=== PATIENT | male | born 1990 | race Caucasian/White ===

== ENCOUNTER 2018-12-15 01:02 | Emergency (ER) | payer BC, SELFPAY ==
[2018-12-15 01:04] VITALS: BP 149/85; PULSE 99; RESP 16; TEMP 37; O2SAT 99; BMI 26.8
--- NOTE | 2018-12-15 01:11 | ED.VIS.GEN ---
History of Present Illness Chief Complaint: Other, Pain/Inj Informant: Patient Onset: Yesterday Narrative: Softball to the left chest 9:30 PM yesterday probably 4 hours ago. Was the picture on the ball hit him. Pain localized to region. Denies any dyspnea. No other injuries. No anticoagulation medicines. Reports had blood clot from previous surgery, no current anticoagulation medicines. Prior similar symptoms: No Past Medical History Smoking Status: Current every day smoker Review of Systems General: Denies: Chills, Fever, Sweats Eyes: Denies: Visual changes - bilaterally, Diplopia ENT: Denies: Rhinorrhea, Sore throat Cardiovascular: Denies: Chest pain, Palpitations Respiratory: Denies: Dyspnea, Cough, Dyspnea on exertion Gastrointestinal: Denies: Abdominal pain, Nausea, Vomiting, Diarrhea, Melena, Hematochezia Genitourinary: Denies: Dysuria, Hematuria, Frequency Musculoskeletal: Denies: Back pain, Extremity Pain Skin: Reports: Wounds. Denies: Rash Neurological: Denies: Headache, Weakness, Numbness Physical Exam Vital Signs/Narrative: Vital Signs Temp Pulse Resp BP Pulse Ox 12/15/18 01:04 98.6 F 99 16 149/85 H 99 Inital Vital Signs reviewed: Yes General: Well nourished, Well developed, No Acute Distress Head: Normocephalic, Atraumatic Eyes: Perrl, EOMI ENT: Moist mucous membranes, No rhinorrhea Neck: Supple, Nontender Cardiovascular: Regular rate, Regular rhythm, No murmurs Respiratory: No distress, CTA bilaterally, - - Chest wall: Left pectoralis upper medial nodes small contusion or circumferential erythema from injury. There is no crepitus of the chest wall. No rib tenderness. Symmetric breath sounds. Abdomen: Soft, Nontender, Nondistended, Normal bowel sounds Back: Nontender, Normal Inspection Extremities: Nontender, No edema Skin: Normal color, No rash Neurological: Alert, Oriented x3, Cranial nerves II-XII grossly intact, Normal Strength, Normal Sensation Psychological: Normal affect, Normal Mood Diagnostic/Tx/Re-eval - Medical Decision Making Patient vitals stable, symmetric breath sounds, no crepitus. There is no sternal tenderness. Discussed contusion at this time with patient. Started on Motrin and ice. Discussed monitoring and possibility of increasing ecchymosis due to recent injury. Discussed obtaining x-ray concerns, declined to monitor at this time. Follow-up as an outpatient as needed. All questions were answered. ED Disposition - Plan for ED Patient: Disposition: Home or Assisted Living Diagnosis: Chest wall contusion Instructions: Chest Wall Contusion Referrals: Jerrod Weinberg MD [STAFF PHYSICIAN] - 5-7 Days
[2018-12-15 01:14] VITALS: BP 138/69; PULSE 90; RESP 16; O2SAT 99
[2018-12-15] MEDS: Ibuprofen 600 MG Tablet PO (01:23)
[2018-12-15 01:57] VITALS: RESP 16
== END 2018-12-15 01:57 | disposition home or self-care (01) ==
LOC: ED 01:25
PROVIDERS: Emergency Provider Emergency Medicine
DX: S20.219A Contusion of unspecified front wall of thorax, initial encounter (principal); F17.200 Nicotine dependence, unspecified, uncomplicated; Z86.718 Personal history of other venous thrombosis and embolism; W21.03XA Struck by baseball, initial encounter; Y93.64 Activity, baseball; Y92.320 Baseball field as the place of occurrence of the external cause; Y99.8 Other external cause status
CPT/HCPCS: 99282

== ENCOUNTER 2019-01-23 14:38 | Observation (INO) | payer BC, SELFPAY ==
[2019-01-23] VITALS (9 sets, daily range): BP systolic 128–149; BP diastolic 70–88; PULSE 66–84; RESP 12–18; TEMP 36.3–36.8; O2SAT 99–100; BMI 26.6; BMI 25.8
--- NOTE | 2019-01-23 15:04 | EKG12_ITS ---
Test Reason : ABD PAIN Blood Pressure : / mmHG Vent. Rate : 071 BPM Atrial Rate : 071 BPM P-R Int : 152 ms QRS Dur : 088 ms QT Int : 398 ms P-R-T Axes : 085 077 028 degrees QTc Int : 432 ms Normal sinus rhythm Moderate voltage criteria for LVH, may be normal variant Cannot rule out Inferior infarct , age undetermined Abnormal ECG Confirmed by SHANIA MOODY ([id number]), art editor JUNE BLACK ([id number]) on 01/29/2019 3:33:54 PM Referred By: Joanie Williamson Confirmed By:SHANIA MOODY
--- NOTE | 2019-01-23 15:04 | RAD_ITS ---
We are attempting to reach an attending provider to discuss findings. An addendum with communication details will be sent when the communication is complete. STUDY: X-RAY CHEST REASON FOR EXAM: Male, 28 years old. Right upper quadrant, chest pain since last Tuesday TECHNIQUE: Single AP portable view of the chest. COMPARISON: None. FINDINGS: There is a pneumothorax which can be seen 3.8 cm below the first rib on the right. It extends down and can be seen in the lateral aspect of the lung. Normal size heart. Normal mediastinum and sejal. Normal visualized pulmonary arteries. Normal visualized aortic arch and descending thoracic aorta. Normal visualized thoracic spine. Normal visualized ribs, clavicles, and shoulders. There is no demonstrated abnormality of the visualized soft tissue structures of the upper abdomen. RAD/Chest 1 View (Portable) IMPRESSION: Moderate volume right pneumothorax. Electronically Signed: Katrin Fernandez MD at 15:30 EDT Tel , Service support ,
[2019-01-23 15:17] LABS: Absolute Lymphocyte Count 2.08 X10^3/uL (0.83-4.51); Absolute Neutrophil Count 3.3 X10^3/uL (2.0-7.7); Basophil# 0.05 X10^3/uL; Basophil% 0.8 % (0-1); Eosinophil# 0.14 X10^3/uL; Eosinophils% 2.2 % (0-5); Hematocrit 40.8 % (40-54); Hemoglobin 13.8 g/dL (13.0-16.5); Lymphocyte # 2.08 X10^3/ul (4.0); Lymphocyte % 33.4 % (19-41); Mean Corp Hgb Conc 33.8 g/dL (32-36); Mean Corpuscular Hgb 30.2 pg (27.0-32.0); Mean Corpuscular Volume 89.3 fL (80-94); Mean Platelet Vol. 10.4 fl (6.2-12.0); Monocyte# 0.67 X10^3/uL; Monocyte% 10.8 % (0-10); NRBC Flagged by Analyzer 0 % (0-5); Neutrophil # 3.27 X10^3/uL (2.7-7.7); Neutrophil % 52.5 % (47-70); Platelet Count 198 K/mm3 (150-450); RBC Distribution Width CV 11.9 % (11.6-14.6); RBC Distribution Width SD 38.4 fl (35.1-43.9); Red Blood Count 4.57 M/mm3 (4.6-6.2); White Blood Count 6.2 K/mm3 (4.4-11.0)
--- NOTE | 2019-01-23 15:19 | ED.DCSUM_ITS ---
- ER Visit Summary Date of Service: 01/23/19 Chief Complaint: Pain History of Present Illness: The patient is a 28 M with right midthoracic pain. Pain started 3 days ago when he woke up. The pain is in his right upper quadrant and right lower lung region and it radiates to the back. Worse with standing and deep breathing. Associated with shortness of breath which is worse with exertion. He also has increased indigestion and decreased oral intake. Chills but no fevers. No other GI or symptoms. History of DVT. Former smoker. Physical Examination: Afebrile and vital signs unremarkable. Patient alert and oriented. No acute distress. Skin appears normal. Heart regular. Lungs clear. Abdomen soft and nontender. Back is nontender. Exam otherwise unremarkable. Test Results: EKG showed sinus rhythm at a rate of [address] and T changes, possible LVH. Awaiting lab work and chest x-ray. Emergency Department Course and Treatment: I did consider cardiac, respiratory, vascular, GI, , infectious causes. Work-up as above. Patient declined pain medicine. Radiology called. He had a moderate right-sided pneumothorax. Based on his history, this is a spontaneous pneumothorax. There is no sign of tension or other issues. The remainder of his work-up was unremarkable. We consented the patient for a pigtail catheter with Heimlich valve. First attempt caused a catheter and it was removed. I tried a second time, and the catheter would not advance. Dr. Lamb attempted the third time more laterally, and the procedure was successful. Chest x-ray showed good placement and reduct ion of the pneumothorax. Patient was discussed with Dr. Light. He recommended admission and observation overnight. We will remove the catheter tomorrow if all goes well. Hospitalist was contacted. Treatment Plan: As above Disposition: Admission Impression: 1. Spontaneous right pneumothorax This note was generated with [employer] software. It may contain incorrect words, spelling, and punctuation that were not noted in review of the chart prior to signing ED Disposition - Plan for ED Patient: Referrals: Care Physician,No Primary [Primary Care Provider] -
[2019-01-23 15:45] LABS: D-Dimer Quantitative (DVT/PE) < 0.27 FEU/ug/m (0.27-0.49)
[2019-01-23 15:49] LABS: ALB/GLOB Ratio 1.2 RATIO (0.9-2.4); AST(SGOT) 14 U/L (15-37); Alanine Aminotransfer ALT/SGPT 20 U/L (16-61); Albumin, Serum 4.1 g/dL (3.2-5.0); Alkaline Phosphatase 51 U/L (45-117); Anion Gap 5 (5-15); BUN 19 mg/dL (7-18); Calcium,Total 9.1 mg/dL (8.5-10.1); Chloride 102 mmol/L (98-107); Creatinine, Serum 1.27 mg/dL (0.70-1.30); EST Glomerular Filtration Rate 70 mL/min (>60); Est Glom Filt Rate - Afr Amer 85 mL/min (>60); Estimated Creatinine Clearance 96.12 ml/min; Globulin 3.3 g/dL (2.2-4.2); Glucose 104 mg/dL (74-106); Lipase 85 U/L (73-393); Protein, Total 7.4 g/dL (6.4-8.2); Sodium Level 138 mmol/L (136-145)
--- NOTE | 2019-01-23 16:19 | RAD_ITS ---
STUDY: X-RAY CHEST REASON FOR EXAM: Male, 28 years old. Chest tube placement TECHNIQUE: Single AP portable view of the chest. COMPARISON: January 23, 2019 chest x-ray FINDINGS: There is a small-caliber right side catheter. There is still a visualized pneumothorax. Normal size heart. Normal mediastinum and sejal. Normal visualized pulmonary arteries. Normal visualized aortic arch and descending thoracic aorta. Normal visualized thoracic spine. Normal visualized ribs, clavicles, and shoulders. There is no demonstrated abnormality of the visualized soft tissue structures of the upper abdomen. RAD/Chest 1 View (Portable) IMPRESSION: Small caliber right side pigtail catheter in the periphery of the mid to upper right chest. Persistent slightly smaller pneumothorax. Electronically Signed: Katrin Fernandez MD at 16:54 EDT Tel , Service support ,
--- NOTE | 2019-01-23 17:54 | HP.PCM_ITS ---
Problem List (1) Spontaneous pneumothorax Status: Acute (2) Nicotine abuse Status: Chronic (3) Hx of deep venous thrombosis Status: Chronic History of Present Illness Date of Admission: 01/23/19 Chief Complaint: SOB The patient is a 28 year old M with pmhx of nicotine abuse, provoked DVT after ACL surgery, who presents to the ER with c/o SOB. This started 3 days ago. He works nights and woke up at about 5 pm, feeling SOB. He was mildly SOB at rest, worse with exertion. He also has associated right sided chest pain at the level of the nipple down to the RUQ. He felt some gurgling in his chest as well. He has no trauma to the right side of his chest - he did get hit with a softball in the left side of his chest 6 weeks ago. He also is a smoker, smoking for the past ten years. He has recently cut down to only a few total cigarettes this past week. He does not smoke anything else. He is exposed to smoke at home - mother smokes. He has not been coughing. No recent illness or infection, so fevers/chills. In the ER CXR shows right sided pneumothorax. ER is attempting to place heimlich valve. [] Past Medical History Past Medical History (Chronic Problems): Chronic Problems Nicotine abuse (Chronic) Hx of deep venous thrombosis (Chronic) Allergies No Known Allergies Allergy (Verified 01/23/19 14:42) Home Medications: Ambulatory Orders Medication Instructions Recorded NK 01/23/19 Surgical History: - - ACL repair Psychiatric History: No pertinent psych hx Lives: Alone Smoking Status: Current some day smoker Tobacco Use: Cigarettes Alcohol: Rare Drugs: None - *Family History Maternal History Items: - - smoker Paternal History Items: No pertinent history Review of Systems Constitutional: Denies: Chills, Fever, Weight Change HEENT: Denies: Head Aches, Sinus Congestion, Sinus Drainage Cardiovascular: Denies: Chest Pain, Palpitations Respiratory: Reports: Shortness of Breath, Shortness of breath at rest, Shortness of breath upon exertion. Denies: Cough, Sputum production Gastrointestinal: Denies: Abdominal Pain, Nausea, Vomiting Genitourinary: Denies: Dysuria Musculoskeletal: Denies: Joint Pain, Joint Tenderness Skin: Denies: Lesions, Rash, Skin Changes, Wounds Neurological: Denies: Numbness, Tingling, Focal weakness Psychiatric: Denies: Anxiety, Depression, Homicidal Ideations, Suicidal Enmanuel ations Hematologic/ Lymphatic: Denies: Easy Bruising, Easy Bleeding VTE Information - Inpt Only VTE Present on Admission: No VTE Mechan Device Prophylaxis: None VTE Pharm Prophylaxis ordered?: Yes Patient Problems: Active and Suspected Problems Spontaneous pneumothorax (Acute) - Physical Exam General: Alert, Oriented x3, Cooperative HEENT: Atraumatic, PERRLA, EOMI, Normocephalic Neck: Supple, No JVD, Negative Carotid Bruits Lungs: Clear to auscultation, Normal air movement Cardiovascular: Regular rate, No murmurs Abdomen: Bowel Sounds Present, Soft, Non Tender Extremities: No edema, Capillary Refill Less than 3 Seconds Skin: No rashes, No breakdown Musculoskeletal: No Tenderness to Palpation of Joints or Extremities Neurological: Cranial nerves II-XII grossly intact Psych/Mental Status: Normal Affect, Appropriate, Alert and oriented to time, place, person, mood and affect Vital Signs Temp Pulse Resp BP Pulse Ox 97.4 F L 82 14 131/70 H 100 01/23/19 14:39 01/23/19 17:52 01/23/19 17:52 01/23/19 17:52 01/23/19 17:52 Oxygen Delivery Method Room Air Weight: 201 lb 15.095 oz Body Mass Index (BMI) 26.6 Laboratory Tests Past 24 Hrs 01/23/19 01/23/19 01/23/19 15:12 15:12 15:12 WBC 6.2 RBC 4.57 L Hgb 13.8 Hct 40.8 MCV 89.3 MCH 30.2 MCHC 33.8 RDW Std Deviation 38.4 RDW Coeff of Vesna 11.9 Plt Count 198 MPV 10.4 Immature Gran % (Auto) 0.300 Neut % (Auto) 52.5 Lymph % (Auto) 33.4 [place] % (Auto) 10.8 H Eos % (Auto) 2.2 Baso % (Auto) 0.8 Absolute Neuts (auto) 3.3 Absolute Lymphs (auto) 2.08 Nucleated RBC % 0 D-Dimer Quant (PE/DVT) < 0.27 L Sodium 138 Potassium 4.0 Chloride 102 Carbon Dioxide 31.0 Anion Gap 5 BUN 19 H Creatinine 1.27 Estim Creat Clear Calc 96.12 Est GFR (MDRD) Af Amer 85 Est GFR (MDRD) Non-Af 70 BUN/Creatinine Ratio 15.0 Glucose 104 Calcium 9.1 Total Bilirubin 0.50 AST 14 L ALT 20 Alkaline Phosphatase 51 Troponin I < 0.015 Total Protein 7.4 Albumin 4.1 Globulin 3.3 Albumin/Globulin Ratio 1.2 Lipase 85 Assessment/Plan All Active Problems Spontaneous pneumothorax (Acute) 1. Spontaneous pneumothorax - ER to place ball valve. Continue IS, aerosols prn, CXR in AM. EKG is negative, troponin is negative. Monitor on tele overnight. 2. Hx DVT, provoked after ACL surgery. D dimer negative. 3. Nicotine abuse - recently cut back a few per week - I discussed the need for complete cessation DVT ppx: early ambulation This patient was seen by Jason Alvarenga PA-C under the supervision of Dr. Williamson.
--- NOTE | 2019-01-23 18:15 | RAD_ITS ---
STUDY: X-RAY CHEST REASON FOR EXAM: Male, 28 years old. Right-sided chest tube placement TECHNIQUE: Single frontal view of the chest. COMPARISON: January 23, 2019 4:27 PM FINDINGS: Heimlich catheter terminates in the right upper lung field. It is no longer kinked. Small right apical pneumothorax appears slightly smaller at 5%. The lungs are clear and expanded. There is no demonstrated pleural abnormality. Normal size heart. Normal mediastinum and sejal. Normal visualized pulmonary arteries. Normal visualized aortic arch and descending thoracic aorta. Normal visualized thoracic spine. Normal visualized ribs, clavicles, and shoulders. There is no demonstrated abnormality of the visualized soft tissue structures of the upper abdomen. RAD/Chest 1 View (Portable) IMPRESSION: Decrease in small right pneumothorax. Heimlich tube is no longer kinked. Electronically Signed: Gilbert Scott MD at 18:35 EDT , Service support ,
--- NOTE | 2019-01-23 18:15 | ED.VISSUMM ---
- ER Visit Summary Date of Service: 01/23/19 Chief Complaint: Atraumatic right chest pain History of Present Illness: The patient is a 28 M who was seen by Dr. Jones. Patient has spontaneous right pneumothorax noted on chest x-ray. Physical Examination: Chest atraumatic normocephalic. Breath sounds are noted bilaterally diminished on the right at the apices. Heart is regular without murmur, gallop or rub Test Results: X-ray reveals approximate 10 to 15% pneumothorax on the right Emergency Department Course and Treatment: Patient was informed that he needs a Heimlich valve placed. He did sign consent. First 2 attempts were unsuccessful. First attempt was unsuccessful because the catheter kinked on itself and was not functional. Second attempt was unsuccessful as well. Patient was prepped draped sterile manner. A different site was used. The pleural cavity was entered easily and catheter advanced. Will obtain chest x-ray to confirm placement. Chest x-ray confirms proper placement and expansion. Chest x-ray was interpreted by ma at 1820. Single portable view. Treatment Plan: admission to hospitalist with consult to pulmonary Disposition: Admission to the hospital Impression: Spontaneous pneumothorax right This note was generated with [employer] dictation software. It may contain incorrect words, spelling, and punctuation that were not noted in review of the chart prior to signing ED Disposition - Plan for ED Patient: Referrals: Care Physician,No Primary [Primary Care Provider] -
[2019-01-23] MEDS: Morphine 2 MG/ML Syringe IV ×2 (19:10→23:35)
[2019-01-23] MEDS: HYDROcodone Bitartrate/Apap 5/325 Tablet PO (21:25)
[2019-01-23] MEDS: 0.9% NaCl Peripheral Flush Adult/Peds IV (23:35)
[2019-01-24] VITALS (7 sets, daily range): BP systolic 100–120; BP diastolic 46–53; PULSE 57–76; RESP 14–16; TEMP 36.6–36.9; O2SAT 99–100
[2019-01-24] MEDS: Morphine 2 MG/ML Syringe IV (04:03)
[2019-01-24] MEDS: 0.9% NaCl Peripheral Flush Adult/Peds IV (04:03)
[2019-01-24] MEDS: HYDROcodone Bitartrate/Apap 5/325 Tablet PO (06:24)
--- NOTE | 2019-01-24 06:42 | CON.PCM_ITS ---
Reason for Consult Date of Consultation: 01/24/19 Reason for Consultation: Primary spontaneous pneumothorax History of Present Illness: The patient is a 28-year-old male, with a history as outlined below, who presented to the emergency department on January 23 with complaints of right- sided thoracic pain. The patient reports that upon awakening Tuesday, he developed right-sided chest pain, which persisted over the next 3 days and was associated with shortness of breath. The patient does have a remote smoking history. He has no history of prior pneumothorax. 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 He denies any significant strenuous physical activity recently. The patient was struck by a line drive during a softball game in his left chest approximately 6 weeks ago. He denies any other form of traumatic injury. He denies any recent severe coughing paroxysms. He has no history of venous thromboembolic disease. On presentation to the emergency department, the patient was noted to be afebrile and hemodynamically stable. He was maintaining appropriate oxygen saturations on room air. Laboratory evaluation revealed no evidence of a leukocytosis. Chemistry profile was unrevealing. D-dimer was negative. Troponin was negative. A plain film chest x-ray was subsequently obtained and revealed a moderate sized right-sided pneumothorax. A small bore chest tube was subsequently placed with near complete resolution of the patient's pneumothorax. A Heimlich valve was put in place and the patient was subsequently admitted to the medical surgical floor for overnight observation and management. Past Medical History Past Medical History (Chronic Problems): Chronic Problems Nicotine abuse (Chronic) Hx of deep venous thrombosis (Chronic) Allergies No Known Allergies Allergy (Verified 01/23/19 14:42) Home Medications: Ambulatory Orders Medication Instructions Recorded Acetaminophen [Tylenol Tablet] 650 mg PO Q6H PRN PRN tab 01/24/19 Oxycodone [Oxyir] 5 mg PO Q6H PRN PRN 3 Days #12 tab 01/24/19 Surgical History: - - ACL repair Psychiatric History: No pertinent psych hx Lives: Alone Smoking Status: Current some day smoker Tobacco Use: Cigarettes Alcohol: Rare Drugs: None - *Family History Maternal History Items: - - smoker Paternal History Items: No pertinent history Review of Systems Constitutional: Denies: Chills, Fever, Weight Change HEENT: Denies: Head Aches, Sinus Congestion, Sinus Drainage Cardiovascular: Reports: Chest Pain Respiratory: Reports: Shortness of Breath Gastrointestinal: Denies: Abdominal Pain, Nausea, Vomiting Genitourinary: Denies: Dysuria Musculoskeletal: Denies: Joint Pain, Joint Tenderness Skin: Denies: Rash, Wounds Neurological: Denies: Numbness, Tingling, Focal weakness Psychiatric: Denies: Anxiety, Depression, Homicidal Ideations, Suicidal Ideations Hematologic/ Lymphatic: Denies: Easy Bruising, Easy Bleeding Patient Problems: Active and Suspected Problems Spontaneous pneumothorax (Acute) Objective: The patient's most recent lab work, culture data and imaging studies have all been personally reviewed. - Physical Exam General: Alert, Oriented x3, Cooperative, No apparent distress HEENT: Atraumatic, PERRLA, Normocephalic Oral: No Gingival or Mucosal Lesions/ Ulcerations Neck: Supple, No Nodes, Trachea Midline Lungs: Normal air movement, No rhonchi, No wheeze, No rales, - - Right-sided small bore chest tube in place with Heimlich valve. Cardiovascular: Regular rate, Regular Rhythm, Normal S1, Normal S2, No murmurs Abdomen: Bowel Sounds Present, Soft, Non Tender Extremities: No clubbing, No cyanosis, No edema Skin: No rashes, No breakdown Musculoskeletal: No Tenderness to Palpation of Joints or Extremities, No Muscle Wasting Lymphatic: No Cervical, Supraclavicular, or Inguinal Adenopathy Neurological: Cranial nerves II-XII grossly intact, Neuro grossly intact Psych/Mental Status: Alert and oriented to time, place, person, mood and affect Vital Signs Temp Pulse Resp BP Pulse Ox 98.1 F 69 16 120/53 L 99 01/24/19 02:52 01/24/19 02:52 01/24/19 03:00 01/24/19 02:52 01/24/19 03:00 Oxygen Flow Rate (L/min) 3 Oxygen Delivery Method Nasal Cannula Weight: 196 lb 1.6 oz Body Mass Index (BMI) 25.8 Intake and Output for Last 24 Hours 01/22/19 01/23/19 01/24/19 23:59 23:59 23:59 Intake Total 900 / 900 Output Total 550 / 550 Balance 350 / 350 Laboratory Tests Past 24 Hrs 01/23/19 01/23/19 01/23/19 15:12 15:12 15:12 WBC 6.2 RBC 4.57 L Hgb 13.8 Hct 40.8 MCV 89.3 MCH 30.2 MCHC 33.8 RDW Std Deviation 38.4 RDW Coeff of Vesna 11.9 Plt Count 198 MPV 10.4 Immature Gran % (Auto) 0.300 Neut % (Auto) 52.5 Lymph % (Auto) 33.4 [place] % (Auto) 10.8 H Eos % (Auto) 2.2 Baso % (Auto) 0.8 Absolute Neuts (auto) 3.3 Absolute Lymphs (auto) 2.08 Nucleated RBC % 0 D-Dimer Quant (PE/DVT) < 0.27 L Sodium 138 Potassium 4.0 Chloride 102 Carbon Dioxide 31.0 Anion Gap 5 BUN 19 H Creatinine 1.27 Estim Creat Clear Calc 96.12 Est GFR (MDRD) Af Amer 85 Est GFR (MDRD) Non-Af 70 BUN/Creatinine Ratio 15.0 Glucose 104 Calcium 9.1 Total Bilirubin 0.50 AST 14 L ALT 20 Alkaline Phosphatase 51 Troponin I < 0.015 Total Protein 7.4 Albumin 4.1 Globulin 3.3 Albumin/Globulin Ratio 1.2 Lipase 85 Clinical Impression(s) from Imaging Studies Chest X-Ray 01/23/19 15:04 IMPRESSION: Moderate volume right pneumothorax. Electronically Signed: Katrin Fernandez MD at 15:30 EDT Tel , Service support , ADDENDUM: 01/23/19 1541 IMPRESSION: Moderate volume right pneumothorax. N.B. : The above information has been verbally conveyed by Katrin Fernandez MD to Yonathan Jones MD, MD, on 01/23/2019 15:34:40 (ET). Electronically Signed: Katrin Fernandez MD at 15:30 EDT Tel , Service support , Chest X-Ray 01/23/19 16:19 IMPRESSION: Small caliber right side pigtail catheter in the periphery of the mid to upper right chest. Persistent slightly smaller pneumothorax. Electronically Signed: Katrin Fernandez MD at 16:54 EDT Tel , Service support , Chest X-Ray 01/23/19 18:15 IMPRESSION: Decrease in small right pneumothorax. Heimlich tube is no longer kinked. Electronically Signed: Gilbert Scott MD at 18:35 EDT , Service support , Assessment/Plan All Active Problems Spontaneous pneumothorax (Acute) RECOMMENDATIONS: 1. We will check chest x-ray this morning and if no evidence of pneumothorax, will remove chest tube. 2. If chest tube is able to be removed, recommend follow-up chest x-ray 2 hours post removal to ensure no evidence of pneumothorax recurrence. 3. The patient can be discharged home from my perspective once x-ray ensures that the patient has not experienced recurrence of his pneumothorax. IMPRESSIONS: 1. Primary spontaneous pneumothorax No precipitating etiology readily identifiable. The patient underwent small bore tube thoracotomy with resolution of the pneumothorax. We will plan to obtain repeat chest x-ray this morning, and if there is no evidence of pneumothorax, chest tube will be removed. I would recommend that a repeat chest x-ray then be completed 2 hours post chest tube removal to ensure that the patient does not experience a recurrence of the pneumothorax. If there is no such finding, he can be discharged home. The patient was counseled regarding the need to seek medical attention if he begins to experience symptoms similar to those which brought him to the hospital. This note was generated with [email or web address] dictation software. It may contain incorrect words, spelling, and punctuation that were not noted in checking the note before signing. Code Visit Inpatient E&M: 69577 Init Hosp L3
--- NOTE | 2019-01-24 06:46 | RAD_ITS ---
EXAM DESCRIPTION: PORTABLE AP CHEST CLINICAL HISTORY: 28 years Male, COMPARISON: Previous portable chest obtained on 01/23/2019 FINDINGS: The thorax is intact. The heart and mediastinum appear to be within normal limits. The lungs appear to be well areated without evidence of pneumonic consolidation or pleural effusion. RAD/Chest 1 View (Portable) IMPRESSION: Normal portable chest. Electronically Signed: Sebas Mcdermott, at 8:22 EDT Tel , Service support ,
--- NOTE | 2019-01-24 10:18 | NURSING ---
Dr. Light reported to this RN that he pulled the chest tube at this time. CXR will be done at 1230 and if ok he may dc home.
--- NOTE | 2019-01-24 11:44 | DCINST_ITS ---
- Discharge Diagnoses Current Active Problems: Current Active and Chronic Problems Spontaneous pneumothorax (Acute) Nicotine abuse (Chronic) Hx of deep venous thrombosis (Chronic) You will use the following diet at home:: No restrictions Your food should be the consistency of: Regular Your liquids should be the consistency of: Regular/Thin Discharge Activity: Return to Normal Activity Allergies/Adverse Reactions: Allergies No Known Allergies Allergy (Verified 01/23/19 14:42) Medications to take at Discharge Acetaminophen [Tylenol Tablet] 650 mg PO Q6H PRN PRN tablet 01/24/19 Oxycodone [Oxyir] 5 mg PO Q6H PRN PRN 3 Days #12 tab 01/24/19 The following prescriptions were given: Oxycodone [Oxyir] 5 mg PO Q6H PRN PRN 3 Days #12 tab PRN Reason: Pain Score 6-10/10 Prescription Printed Primary Care Physician: Care Physician,No Primary [Primary Care Provider] - Please follow up with your Primary Care Physician in: 1 week Test Results: Test results from this visit will be discussed in further detail at your follow- up appointment, if applicable. Proposed Discharge Date: 01/24/19
--- NOTE | 2019-01-24 12:24 | RAD_ITS ---
EXAM DESCRIPTION: PORTABLE AP CHEST CLINICAL HISTORY: 28 years Male, right chest tube removal we check for pneumothorax COMPARISON: Previous AP portable chest obtained on 01/24/2019 and 7:09 AM FINDINGS: The right chest tube has been removed. The rest of the thorax is intact. The heart and mediastinum appear to be within normal limits. The lungs appear to be well areated without evidence of pneumonic consolidation or pleural effusion. RAD/Chest 1 View (Portable) IMPRESSION: Normal portable chest. Electronically Signed: Sebas Mcdermott, at 12:53 EDT Tel , Service support ,
--- NOTE | 2019-01-24 13:21 | DS.PCM_ITS ---
Discharge Date and Diagnosis - Problem List Patient Problems: Active and Suspected Problems Spontaneous pneumothorax (Acute) Date of Admission: 01/23/19 Date of Discharge: 01/24/19 - Primary Discharge Diagnosis Active and Suspected Problems Spontaneous pneumothorax (Acute) Nicotine abuse - Secondary Discharge Diagnosis Chronic Problems Nicotine abuse (Chronic) Hx of deep venous thrombosis (Chronic) Hospital Course and Treatment Imaging Results: RAD/Chest 1 View (Portable) IMPRESSION: Moderate volume right pneumothorax. RAD/Chest 1 View (Portable) IMPRESSION: Small caliber right side pigtail catheter in the periphery of the mid to upper right chest. Persistent slightly smaller pneumothorax. RAD/Chest 1 View (Portable) IMPRESSION: Decrease in small right pneumothorax. Heimlich tube is no longer kinked. RAD/Chest 1 View (Portable) IMPRESSION: Normal portable chest. RAD/Chest 1 View (Portable) IMPRESSION: Normal portable chest. Consults: Brown - pulmonology Operations: None Procedures: - - heimlich valve Summary of Care Provided: Hospital Course: The patient is a 28 year old M with pmhx of provoked DVT following ACL surgery, and nicotine abuse who presented to the ER with c/o SOB worse with exertion and right sided chest pain. In the ER he was found to have a right upper pneumothorax. This was felt to be spontaneous. D dimer was negative. He denied hx of any drug use or vaping. He was a ten year smoker, down to a few cigarettes per week. A heimlich valve was placed in the ER. He was admitted to the med surg floor overnight for monitoring. Pulmonology evaluated the patient the next day. Repeat CXR showed improvement in the pneumo. Pulm removed the heimlich valve and he remained stable symptomatically and on CXR. He was discharged home in stable condition and will need follow up with his PCP in 1 week. This patient was seen by Jason Alvarenga PA-C under the supervision of Dr. Borden [] Patient Problems: Active and Suspected Problems Spontaneous pneumothorax (Acute) - Physical Exam General: Alert, Oriented x3, Cooperative HEENT: Atraumatic, PERRLA, EOMI, Normocephalic Neck: Supple, No JVD, Negative Carotid Bruits Lungs: Clear to auscultation, Normal air movement Cardiovascular: Regular rate, No murmurs Abdomen: Bowel Sounds Present, Soft, Non Tender Extremities: No edema, Capillary Refill Less than 3 Seconds Skin: No rashes, No breakdown Musculoskeletal: No Tenderness to Palpation of Joints or Extremities Neurological: Cranial nerves II-XII grossly intact Psych/Mental Status: Normal Affect, Appropriate, Alert and oriented to time, place, person, mood and affect Vital Signs Temp Pulse Resp BP Pulse Ox 97.8 F 63 16 115/46 L 100 01/24/19 09:00 01/24/19 11:16 01/24/19 09:00 01/24/19 09:00 01/24/19 09:00 Oxygen Flow Rate (L/min) 3 Oxygen Delivery Method Room Air Weight: 196 lb 1.6 oz Body Mass Index (BMI) 25.8 Intake and Output for Last 24 Hours 01/22/19 01/23/19 01/24/19 23:59 23:59 23:59 Intake Total 1200 / 1200 Output Total 550 / 550 Balance 650 / 650 Laboratory Tests Past 24 Hrs 01/23/19 01/23/19 01/23/19 15:12 15:12 15:12 WBC 6.2 RBC 4.57 L Hgb 13.8 Hct 40.8 MCV 89.3 MCH 30.2 MCHC 33.8 RDW Std Deviation 38.4 RDW Coeff of Vesna 11.9 Plt Count 198 MPV 10.4 Immature Gran % (Auto) 0.300 Neut % (Auto) 52.5 Lymph % (Auto) 33.4 [place] % (Auto) 10.8 H Eos % (Auto) 2.2 Baso % (Auto) 0.8 Absolute Neuts (auto) 3.3 Absolute Lymphs (auto) 2.08 Nucleated RBC % 0 D-Dimer Quant (PE/DVT) < 0.27 L Sodium 138 Potassium 4.0 Chloride 102 Carbon Dioxide 31.0 Anion Gap 5 BUN 19 H Creatinine 1.27 Estim Creat Clear Calc 96.12 Est GFR (MDRD) Af Amer 85 Est GFR (MDRD) Non-Af 70 BUN/Creatinine Ratio 15.0 Glucose 104 Calcium 9.1 Total Bilirubin 0.50 AST 14 L ALT 20 Alkaline Phosphatase 51 Troponin I < 0.015 Total Protein 7.4 Albumin 4.1 Globulin 3.3 Albumin/Globulin Ratio 1.2 Lipase 85 Discharge Diet: No Restrictions Discharge Activity: Return to Normal Activity Home Medications: Medications to take at Discharge Acetaminophen [Tylenol Tablet] 650 mg PO Q6H PRN PRN tab 01/24/19 Oxycodone [Oxyir] 5 mg PO Q6H PRN PRN 3 Days #12 tab 01/24/19 Following Prescrptions Were Given to Patient: Oxycodone [Oxyir] 5 mg PO Q6H PRN PRN 3 Days #12 tab PRN Reason: Pain Score 6-1010 Transmission Status: Received by [facility]/pharmacy #[id number] Primary Care Physician: Care Physician,No Primary [Primary Care Provider] - Please follow up with your Primary Care Physician in: 1 week Disposition: Home Minutes spent on discharge:: 35 Patient Condition:: Stable Medical Necessity - Tobacco Use Smoking Status: Current some day smoker Tobacco Use: Cigarettes Meaningful Use Info Meaningful Use Diagnoses (Choose all that apply): None applicable
== END 2019-01-24 15:45 | disposition home or self-care (01) ==
LOC: ED 15:09 → MS3 19:24
PROVIDERS: Admitting Provider Family Medicine; Emergency Provider Emergency Medicine; Referring Provider Family Medicine; Visit Provider Internal Medicine
DX: J93.83 Other pneumothorax (principal); F17.210 Nicotine dependence, cigarettes, uncomplicated; Z86.718 Personal history of other venous thrombosis and embolism
CPT/HCPCS: 32551; 71045; 80053; 83690; 84484; 85025; 85379; 93005; 96374; 96376; 99218; 99285; A4216; G0378

== ENCOUNTER → 2022-01-22 | Outpatient (CLI) | payer BC, SELFPAY ==
--- NOTE | 2022-01-22 13:45 | MRI_ITS ---
STUDY: MR CHEST WITHOUT CONTRAST REASON FOR EXAM: Male, 31 years old. LEFT pectoralis tear/injury -- LEFT pectoralis TECHNIQUE: Standardized fat and water weighted pulse sequences were obtained in all 3 orthogonal planes. COMPARISON: No prior comparison multiplanar imaging of the chest. FINDINGS: Pectoralis tendon insertion onto the proximal humerus is intact. No abnormal fluid at the tendon insertion. There is abnormal fluid signal at the musculotendinous junction, roughly 7 cm from the tendon insertion onto the humerus consistent with myotendinous junction tear. There is no appreciable tendon retraction. Small amount of fluid seen extending into the pectoralis muscle over the chest. The visualized lungs are unremarkable. There is no demonstrated pleural abnormality. Normal heart and pericardium. No axillary lymphadenopathy. Normal mediastinum. Normal hilar regions. Normal unenhanced pulmonary arteries. Normal aorta arch and descending thoracic aorta. Normal osseous structures. 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 Intact tendon insertion onto the proximal humerus. Electronically Signed: Troy Santos DO at 18:18 EDT ,
== END | disposition home or self-care (01) ==
LOC: MRI 13:32
PROVIDERS: Visit Provider Physician Assistant
DX: S29.012A Strain of muscle and tendon of back wall of thorax, initial encounter (principal)
CPT/HCPCS: 71550

== ENCOUNTER 2023-05-04 06:09 | Emergency (ER) | payer BC, SELFPAY ==
[2023-05-04 06:14] VITALS: BP 153/89; PULSE 107; RESP 18; TEMP 36.6; O2SAT 95; BMI 28.3
[2023-05-04 06:18] VITALS: BP 153/89; PULSE 98; RESP 18; TEMP 36.6; O2SAT 95
--- NOTE | 2023-05-04 06:19 | RAD_ITS ---
We are attempting to reach an attending provider to discuss findings. An addendum with communication details will be sent when the communication is complete. EXAM: XR CHEST, 2 VIEWS CLINICAL INDICATION: dyspnea dyspnea TECHNIQUE: Frontal and lateral views of the chest. COMPARISON: Chest x-ray 01/24/2019. FINDINGS: LUNGS AND PLEURAL SPACES: There is a large right pneumothorax with complete collapse the right lung. There is no demonstrated mediastinal shift at this time to indicate tension pneumothorax. No effusion. HEART: Unremarkable. Cardiac silhouette not enlarged. MEDIASTINUM: Central airways and mediastinal contour are unremarkable. BONES/JOINTS: Unremarkable. No acute fracture. SOFT TISSUES: Unremarkable. RAD/Chest PA and Lateral IMPRESSION: Large right pneumothorax with complete collapse of the right lung. Electronically Signed: Han Conner MD at 7:51 EST Reading Location ID and State: [facility] / [place] , Service support ,
[2023-05-04 07:12] VITALS: PULSE 87; RESP 16; O2SAT 98
[2023-05-04 07:18] LABS: Absolute Lymphocyte Count 1.12 X10^3/uL (0.83-4.51); Absolute Neutrophil Count 12.4 X10^3/uL (2.0-7.7); Basophil# 0.06 X10^3/uL; Basophil% 0.4 % (0-1); Eosinophil# 0.07 X10^3/uL; Eosinophils% 0.5 % (0-5); Hematocrit 45.7 % (40-54); Hemoglobin 15.1 g/dL (13.0-16.5); Lymphocyte # 1.12 X10^3/ul (0.83-4.51); Lymphocyte % 7.5 % (19-41); Mean Corpuscular Hgb 29.5 pg (27.0-32.0); Mean Corpuscular Volume 89.4 fL (80-94); Mean Platelet Vol. 10.4 fl (6.2-12.0); Monocyte# 1.09 X10^3/uL; Monocyte% 7.3 % (0-10); NRBC Flagged by Analyzer 0 % (0-5); Neutrophil # 12.44 X10^3/uL (2.7-7.7); Neutrophil % 83.9 % (47-70); Platelet Count 273 K/mm3 (150-450); RBC Distribution Width CV 13.3 % (11.6-14.6); RBC Distribution Width SD 43.7 fl (35.1-43.9); Red Blood Count 5.11 M/mm3 (4.6-6.2); White Blood Count 14.8 K/mm3 (4.4-11.0)
[2023-05-04] MEDS: Morphine 4 MG/ML Syringe IV (07:36)
[2023-05-04 07:37] LABS: Anion Gap 4 (5-15); BUN 14 mg/dL (7-18); BUN/Creat Ratio 12.1 RATIO (10-20); Calcium,Total 9.2 mg/dL (8.5-10.1); Chloride 108 mmol/L (98-107); Creatinine, Serum 1.16 mg/dL (0.70-1.30); EST Glomerular Filtration Rate 76 mL/min (>60); Est Glom Filt Rate - Afr Amer 92 mL/min (>60); Glucose 101 mg/dL (74-106); Potassium 4.4 mmol/L (3.5-5.1); Sodium Level 139 mmol/L (136-145)
[2023-05-04] MEDS: Ondansetron 4 MG/2 ML Vial IV (07:37)
--- NOTE | 2023-05-04 07:52 | EX.ED.DYSGE1 ---
HPI History of Present Illness Chief Complaint: Shortness of Breath Informant: patient Narrative Narrative: Patient is a 33-year-old male with past medical history of spontaneous pneumothorax in 2019. He also had a right lower extremity DVT following a surgery. He states he was worked up for a possible clotting disorder which was negative and he is not on A blood thinner medication. He states yesterday he had a few coughing episodes and then felt almost indigestion within his chest more so on the right side. He states as time progressed he noticed increasing pain and shortness of breath sensation. He states this feels very similar nature to his previous pneumothorax and had concern for this and therefore comes in for evaluation. He denies any recent surgery or travel he also states that there is no family history of cardiac disease at a young age PFSH PFSH Home Medications acetaminophen 325 mg tablet 650 mg (2 x 325 mg) PO Q6H PRN PRN Non-cardiac pain (mod-severe) 01/24/19 [Rx Last Taken Unknown] Allergy/AdvReac Type Severity Reaction Status Date / Time No Known Allergies Allergy Verified 05/04/23 06:13 Social History Smoking Status: Current some day smoker tobacco type: cigarettes ROS ROS ED Constitutional Constitutional ED: Denies chills or fever(s) ENT ENT ED: Denies sore throat Cardiovascular Cardiovascular: Reports chest pain Respiratory/Chest Respiratory/Chest: Reports dyspnea; Denies cough Gastrointestinal Gastrointestinal: Reports nausea; Denies abdominal pain, diarrhea or vomiting Genitourinary Genitourinary ED: Denies dysuria Musculoskeletal Musculoskeletal: Denies myalgias Integumentary Denies rash Neurologic Neurologic: Denies headache(s) Hematologic/Lymphatic Hematologic/Lymphatic: Denies easy bleeding or easy bruising EXAM Physical Exam Const Vital Signs: 05/04/23 06:14 05/04/23 06:18 05/04/23 06:18 Temperature 97.8 F 97.8 F Temperature Source Temporal Temporal Pulse Rate 107 H 98 Respiratory Rate 18 18 Respiratory Effort Normal Respiratory Depth Normal Respiratory Pattern Normal Blood Pressure 153/89 H 153/89 H Blood Pressure Mean 110 110 Pulse Ox 95 95 Oxygen Delivery Method Room Air Room Air Room Air Oxygen Flow Rate (L/min) 05/04/23 07:12 05/04/23 08:16 Temperature Temperature Source Pulse Rate 87 95 Respiratory Rate 16 23 H Respiratory Effort Respiratory Depth Respiratory Pattern Blood Pressure 131/89 H Blood Pressure Mean 103 Pulse Ox 98 98 Oxygen Delivery Method Room Air Nasal Cannula Oxygen Flow Rate (L/min) 4 Positive well nourished and well developed General Appearance ED: well developed; Negative for pallor HEENT Reports moist mucous membranes HEENT Narrative: No tongue or lip swelling no oral lesions no airway edema or compromise Eyes PERRL and EOMs intact bilaterally General Eye ED: Negative for scleral icterus Neck supple and no JVD Neck Narrative: No tracheal deviation or crepitance palpated Chest Wall palpation of chest normal Chest Narrative: No bony deformity or crepitance noted Resp normal respiratory effort Resp Narrative: Breath sounds are severely diminished in the right upper and lower lobe but overall clear to auscultation and patient does not have nasal flaring retractions tachypnea or accessory muscle use Cardio regular rhythm Rate: tachycardic and other Other Details: Heart is tachycardic rate with regular rhythm no murmurs rubs or gallops Radial and carotid pulses are equal and symmetric GI normal to inspection, nondistended, normoactive bowel sounds, non-tender, non-distended and no masses Auscultation: normoactive bowel sounds Palpation: soft Extremity normal to inspection Extremity Narrative: No asymmetric edema no pitting edema negative Homans' sign bilaterally Neuro oriented x3, CN's II-XII intact bilaterally and no sensory deficits noted Sensorium / Orientation: alert Motor Exam: strength 5/5 throughout Psych mental status grossly normal Skin no rashes or lesions noted General Skin Exam: Negative for jaundice or pallor MDM MDM MDM Narrative Medical decision making narrative: Patient presented to the ER hypertensive and slightly tachycardic but otherwise with stable vitals satting in the mid to high 90s on room air. He reported past medical history of spontaneous pneumothorax and mild increasing right-sided chest discomfort with shortness of breath sensation. Differential diagnosis is for recurrent spontaneous pneumothorax versus pneumonia but as he also has history of DVT there is concern this could be secondary to pulmonary embolus. We discussed obtaining basic blood work with a D-dimer as well as a chest x-ray but patient has low concern for blood clot or cardiac event and has more concerned that this is repeat pneumothorax. Therefore we elected to only start with a 2 view chest x-ray. Chest x-ray did reveal a large/complete right-sided pneumothorax. Patient was placed on nasal cannula oxygen for nitrogen washout. General surgery was contacted to help place a right-sided chest tube. As this is the patient's second spontaneous pneumothorax they do recommend transfer to a facility that can potentially perform a VATS procedure. The chest tube was placed by general surgeon Dr. Walton . The case was discussed with cardiothoracic surgeon Dr. Elliott at [facility]. She feels as this is recurrent in nature that she can evaluate the patient and discuss potential surgical options. Therefore patient will be transfer ER to ER at this time where she can evaluate the patient and go over further testing. The case was discussed with the ER physician Dr. Ramirez who accepts the patient for transfer Lab Data Attestation: I reviewed the patient's lab results. Labs: Laboratory Results - last 24 hr 05/04/23 07:15 WBC 14.8 H RBC 5.11 Hgb 15.1 Hct 45.7 MCV 89.4 MCH 29.5 MCHC 33.0 RDW Std Deviation 43.7 RDW Coeff of Vesna 13.3 Plt Count 273 MPV 10.4 Immature Gran % (Auto) 0.400 Neut % (Auto) 83.9 H Lymph % (Auto) 7.5 L [place] % (Auto) 7.3 Eos % (Auto) 0.5 Baso % (Auto) 0.4 Absolute Neuts (auto) 12.4 H Absolute Lymphs (auto) 1.12 Nucleated RBC % 0 Sodium 139 Potassium 4.4 Chloride 108 H Carbon Dioxide 27.0 Anion Gap 4 L BUN 14 Creatinine 1.16 Estim Creat Clear Calc 109.20 Est GFR (MDRD) Af Amer 92 Est GFR (MDRD) Non-Af 76 BUN/Creatinine Ratio 12.1 Glucose 101 Calcium 9.2 Radiography Diagnostic Testing: Clinical Impression(s) from Imaging Studies Chest X-Ray 05/04/23 06:19 IMPRESSION: Large right pneumothorax with complete collapse of the right lung. Electronically Signed: Han Conner MD at 7:51 EST , ADDENDUM: 05/04/23 0803 IMPRESSION: Large right pneumothorax with complete collapse of the right lung. N.B. : The above Results were Read Back by Han Conner MD to Sergio Hearn DO, and understanding confirmed on 05/04/2023 07:56:21 (ET). Electronically Signed: Han Conner MD at 7:51 EST , Chest X-Ray 05/04/23 08:00 IMPRESSION: This is a complete pneumothorax. Complete atelectatic collapse of the right lung. Right chest tube in the right axilla. Electronically Signed: Christopher Bolaños MD at 8:35 EST , Chest X-Ray 05/04/23 08:05 IMPRESSION: Possible small residual right inferior pneumothorax which is less than 5% in size. Electronically Signed: Christopher Bolaños MD at 8:25 EST , 2 view chest x-ray as interpreted by the emergency medicine physician reveals a large/complete right-sided pneumothorax with tracheal deviation Repeat chest x-ray after chest tube insertion shows near complete reinflation of the right pneumothorax Discharge Plan Triage Chief Complaint: Shortness of Breath ED Provider: Sergio Hearn Dx/Rx/DC Orders Clinical Impression: Recurrent spontaneous pneumothorax Prescriptions: No Action acetaminophen 325 MG tablet 650 mg PO Q6H PRN PRN (Reason: Non-cardiac pain (mod-severe)) 0RF Primary Care Provider: Care Physician,No Primary Referrals: Care Physician,No Primary [Primary Care Provider] - Disposition Disposition: Acute Care Hospital Discharge Location: [facility] Legal Section [place] Reflex Medical hold order details:: IF a medical hold is selected below, a suggested order for a MEDICAL HOLD will reflex upon signing the document. Next of kin: [place] law dictates a PRIORITY LIST for identifying legal decision-maker/legal next of kin in the following order (LNOK): 1st: The patient?s legal guardian, if any 2nd: The patient's spouse (if status is questionable, consult Risk Management) 3rd: The patient?s adult child([place]) (majority, if multiple children) 4th: The patient?s parents 5th: The patient?s adult siblings (majority, if multiple children siblings)
--- NOTE | 2023-05-04 08:00 | RAD_ITS ---
STUDY: X-RAY CHEST REASON FOR EXAM: Male, 33 years old. CHEST PAIN chest tube placement #1 TECHNIQUE: XR Chest 1 View COMPARISON: Study done earlier today. FINDINGS: There is a right pneumothorax. This is a complete pneumothorax. Complete atelectatic collapse of the right lung. Right chest tube in the right axilla. Normal size heart. Normal mediastinum and sejal. Normal visualized pulmonary arteries. Normal visualized aortic arch and descending thoracic aorta. Normal visualized thoracic spine. Normal visualized ribs, clavicles, and shoulders. There are no acute findings of the upper abdomen. RAD/Chest 1 View (Portable) IMPRESSION: This is a complete pneumothorax. Complete atelectatic collapse of the right lung. Right chest tube in the right axilla. Electronically Signed: Christopher Bolaños MD at 8:35 EST ,
--- NOTE | 2023-05-04 08:05 | RAD_ITS ---
STUDY: X-RAY CHEST REASON FOR EXAM: Male, 33 years old. CHEST TUBE #2 TECHNIQUE: XR Chest 1 View COMPARISON: Study done earlier today. FINDINGS: Right chest tube in place. Possible small residual right inferior pneumothorax which is less than 5% in size. Normal size heart. Normal mediastinum and sejal. Normal visualized pulmonary arteries. Normal visualized aortic arch and descending thoracic aorta. Normal visualized thoracic spine. Normal visualized ribs, clavicles, and shoulders. There are no acute findings of the upper abdomen. RAD/Chest 1 View (Portable) IMPRESSION: Possible small residual right inferior pneumothorax which is less than 5% in size. Electronically Signed: Christopher Bolaños MD at 8:25 EST ,
[2023-05-04 08:16] VITALS: BP 131/89; PULSE 95; RESP 23; O2SAT 98
--- NOTE | 2023-05-04 08:30 | ED.RN ---
per dr wilson rn to keep pt on at least 2L o2 NC
[2023-05-04] MEDS: HYDROmorphone 1 MG/ML Syringe IV ×2 (08:39→10:13)
--- NOTE | 2023-05-04 09:03 | CON.PCM.SX_ITS ---
Assessment & Plan Assessment/Plan (1) Recurrent spontaneous pneumothorax: PLAN: This is a 33-year-old male with a history of tobacco use, who presents with apparent recurrent spontaneous pneumothorax and complete collapse of his right lung. Patient does confirm that it was his right lung that suffered pneumothorax during his initial experience of this diagnosis in 2019. Fortunately patient appears to have significant pulmonary reserve as he is only mildly dyspneic despite his chest x-ray showing complete collapse of the right lung. Additionally, in my review of the imaging I did not see evidence of tension phenomenon. Still, given the magnitude of this collapse I recommended emergent placement of a thoracostomy tube and then ultimately transfer to a facility with thoracic surgery capabilities for consideration of pleurodesis plus or minus blebectomy (dependent on further evaluation of the lung with CT imaging). Mr. Padilla was receptive of this plan and underwent bedside placement of a right thoracostomy tube using 1% local anesthetic. Postprocedure chest x- ray confirms near complete expansion of his right lung. He does show evidence of an ongoing air leak on his Pleur-evac. Emergency medicine is seeking accepta nce at a receiving facility with thoracic surgery capabilities. HPI Consult Data Date of Consult: 05/04/23 HPI Narrative Reason for Consultation: Spontaneous pneumothorax HPI Narrative: REBA PADILLA, is a 33 M who presents to [facility] after developing acute onset shortness of breath. He states that yesterday evening he began coughing and experiencing shortness of breath while outside with his dog. He developed some associated lightheadedness and a sensation like he needed to burp . He felt this was likely indigestion and tried to lie down. Ultimately he did feel better and was able to get to sleep. Unfortunately his shortness of breath returned and he took a shower and decided to come into the hospital for further evaluation. Patient's ER evaluation included chest x-ray which showed complete collapse of his right lung. Surgery was asked to evaluate patient for possible chest tube placement. Patient confirms a history of prior spontaneous pneumothorax in 2019. He shares that he had some difficulty with chest tube placement at that time but was able to resolve the issue without further procedures. He also notes that he stopped smoking after this ordeal but then returned to smoking in the last year. PFSH Home Medications acetaminophen 325 mg tablet 650 mg (2 x 325 mg) PO Q6H PRN PRN Non-cardiac pain (mod-severe) 01/24/19 [Rx Last Taken Unknown] Allergy/AdvReac Type Severity Reaction Status Date / Time No Known Allergies Allergy Verified 05/04/23 06:13 Social History Smoking Status: Current some day smoker tobacco type: cigarettes Physical Exam Const alert and oriented x3 Constitutional Narrative: Mild respiratory distress Resp Resp Narrative: Slightly tachypneic but able to speak in complete sentences Lab / Micro Data 05/04/23 07:15 05/04/23 07:15 Labs: Laboratory Results - last 24 hr 05/04/23 07:15: WBC 14.8 H, RBC 5.11, Hgb 15.1, Hct 45.7, MCV 89.4, MCH 29.5, MCHC 33.0, RDW Std Deviation 43.7, RDW Coeff of Vesna 13.3, Plt Count 273, MPV 10.4, Immature Gran % (Auto) 0.400, Neut % (Auto) 83.9 H, Lymph % (Auto) 7.5 L, Scurry % (Auto) 7.3, Eos % (Auto) 0.5, Baso % (Auto) 0.4, Absolute Neuts (auto) 12.4 H, Absolute Lymphs (auto) 1.12, Nucleated RBC % 0, Sodium 139, Potassium 4.4, Chloride 108 H, Carbon Dioxide 27.0, Anion Gap 4 L, BUN 14, Creatinine 1.16, Estim Creat Clear Calc 109.20, Est GFR (MDRD) Af Amer 92, Est GFR (MDRD) Non-Af 76, BUN/Creatinine Ratio 12.1, Glucose 101, Calcium 9.2 Imagaing Radiology Impression Chest X-Ray 05/04/23 06:19 IMPRESSION: Large right pneumothorax with complete collapse of the right lung. Electronically Signed: Han Conner MD at 7:51 EST , ADDENDUM: 05/04/23 0803 IMPRESSION: Large right pneumothorax with complete collapse of the right lung. N.B. : The above Results were Read Back by Han Conner MD to Sergio Hearn DO, and understanding confirmed on 05/04/2023 07:56:21 (ET). Electronically Signed: Han Conner MD at 7:51 EST , Chest X-Ray 05/04/23 08:00 IMPRESSION: This is a complete pneumothorax. Complete atelectatic collapse of the right lung. Right chest tube in the right axilla. Electronically Signed: Christopher Bolaños MD at 8:35 EST , Chest X-Ray 05/04/23 08:05 IMPRESSION: Possible small residual right inferior pneumothorax which is less than 5% in size. Electronically Signed: Christopher Bolaños MD at 8:25 EST , Capacity Legal [employer] Reflex Medical hold order details:: IF a medical hold is selected below, a suggested order for a MEDICAL HOLD will reflex upon signing the document. Next of kin: [place] law dictates a PRIORITY LIST for identifying legal decision-maker/legal next of kin in the following order (LNOK): 1st: The patient?s legal guardian, if any 2nd: The patient's spouse (if status is questionable, consult Risk Management) 3rd: The patient?s adult child(china) (majority, if multiple children) 4th: The patient?s parents 5th: The patient?s adult siblings (majority, if multiple children siblings) Charges/Coding Visit Charges Office Visits / Consults: 82253 ED Visit; High/Urgent Severity
--- NOTE | 2023-05-04 09:03 | PCM.OP.PRO ---
Procedure Report Date of Procedure: 05/04/23 Procedure name: Insertion of right tube thoracostomy (20 Fr) Procedure in detail : After obtaining consent from patient, the procedure was begun following a brief timeout confirming both the patient and the procedure. The insertion site was selected by identifying the intercostal space in the midaxillary line along the nipple line. The chest wall was then locally anesthetized with 10 mL 1% Xylocaine. A scalpel was used to incise the skin with an approximately 2 cm transverse incision. Blunt dissection was used to spread the subcutaneous tissue and underlying intercostal muscle fibers. Then through controlled pressure a Gertrudis clamp was used to access the pleural cavity. This tract was bluntly spread open and the clamp was exchanged for the chest tube. Chest tube was inserted to a depth of 12 centimeters on the chest tube marking at the skin. However, I did not receive an immediate atkinson of air as expected and could feel that the tube tract seemed outside of where my dissection had extended so I sought a bedside chest x-ray and confirmed that the tube had proceeded along the outside of the thoracic cavity rather than enter the pleural space. Therefore the suture was cut from the tube and the tube was withdrawn. The sequence of spreading through the intercostal muscle was repeated after elongating the incision by approximately 1 cm in the lateral direction and instilling some additional local anesthetic. This time I maintained my position within the pleural cavity and simply fed the tubing through my clamp. There was immediate return of air and condensation within the tubing. After the tube was connected to the Pleur-evac collection device we noted a intermittent airleak. The Pleur-evac was connected to wall suction with a chest tube suction of -20 cmH2O. the chest tube was then tied in with 2-0 silk suture. The site was dressed with petroleum gauze and regular gauze to pad the skin against the chest tube and this dressing was taped in place with a mesentery at the distal portion of the chest tube to allow for limited movement. A post-procedure chest x-ray was obtained to confirm tube position. Complications: None EBL: Less than 10 mL Procedures Cardiovascular CF Procedures [id number]: [id number] Insertion of chest tube
[2023-05-04 09:12] VITALS: BP 126/82; PULSE 72; RESP 14; O2SAT 99
--- NOTE | 2023-05-04 09:19 | ED.RN ---
OK CALLED, ETA WITHIN THE HOUR
[2023-05-04 10:18] VITALS: BP 143/91; PULSE 86; RESP 14; O2SAT 99
--- NOTE | 2023-05-04 10:19 | ED.RN ---
keys given to security in lab bag with patient label.
== END 2023-05-04 10:22 | disposition short-term general hospital (02) ==
PROVIDERS: Emergency Provider Emergency Medicine; Visit Provider Emergency Medicine
DX: J93.83 Other pneumothorax (principal); F17.210 Nicotine dependence, cigarettes, uncomplicated; Z86.718 Personal history of other venous thrombosis and embolism
CPT/HCPCS: 32551; 71045; 71046; 80048; 85025; 96374; 96375; 96376; 99284; A4216; J2405